=== PATIENT | female | born 1955 | race Caucasian/White ===

== ENCOUNTER 2017-05-25 08:44 | Outpatient (CLI) ==
[2014-09-21 12:29] VITALS: BMI 34.0
[2017-05-25] MEDS: SALINE FLUSH (PORT ACCESS TRAY USE ONLY) IVF ONE (10:00)
[2017-05-25 10:22] VITALS: BP 128/66; TEMP 98.1
== END 2017-05-25 10:17 | disposition home or self-care (01) ==
LOC: RAD 08:44
PROVIDERS: ATTEND Family Medicine
DX: Z12.31 Encounter for screening mammogram for malignant neoplasm of breast (principal)
CPT/HCPCS: 77067; 96523

== ENCOUNTER 2017-12-20 10:15 | Outpatient (CLI) ==
[2014-09-21 12:29] VITALS: BMI 34.0
[2017-12-20] MEDS ORDERED: HEPARIN 500 UNIT/5 ML (PORT ACCESS TRAY ONLY) IVF ONE (10:44)
[2017-12-20 10:49] VITALS: BP 118/72; TEMP 98.3
[2017-12-20] MEDS ORDERED: SALINE FLUSH (PORT ACCESS TRAY USE ONLY) IVF ONE (15:54)
== END 2017-12-20 11:03 | disposition home or self-care (01) ==
LOC: OPMED 10:15
PROVIDERS: ATTEND Family Medicine
DX: Z45.2 Encounter for adjustment and management of vascular access device (principal)
CPT/HCPCS: 96523

== ENCOUNTER 2018-01-10 08:00 | Day surgery (SDC) ==
[2014-09-21 12:29] VITALS: BMI 34.0
[2018-01-10] MEDS ORDERED: NEO-SYNEPHRINE OT PRN (08:25)
[2018-01-10] MEDS ORDERED: CORTISPORIN OTIC SUSP OT PRN (08:25)
[2018-01-10] MEDS ORDERED: ANECTINE ONE (08:55)
[2018-01-10] MEDS ORDERED: SUBLIMAZE ONE (08:55)
[2018-01-10] MEDS ORDERED: VERSED ONE (08:55)
[2018-01-10] MEDS ORDERED: DIPRIVAN 20 ML VIAL IVP ONE (08:55)
--- NOTE | 2018-01-10 11:16 | OP ---
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 5 mm endotracheal tube was inserted and then a larygyscope was inserted down to the level of the vocal cords and secured with a Lewy pathak. 400 mm lens and Zeiss microscope and then the vocal cords were inspected. There was rather marked inflammation and edema of the left true vocal cord as well as false cord area. Biopsies were taken in both of these areas. Bleeding was minimal and the patient was then extubated and returned to the recovery room in satisfactory condition. Direct laryngoscopy revealed no evidence of carcinoma in the larynx. CC: DR. LILI WALTON
[2018-01-10 15:11] VITALS: BP 112/66
== END 2018-01-10 10:30 | disposition home or self-care (01) ==
LOC: SURG 08:00
PROVIDERS: ATTEND Otolaryngology
DX: D14.1 Benign neoplasm of larynx (principal); J38.3 Other diseases of vocal cords; F17.210 Nicotine dependence, cigarettes, uncomplicated; Z85.21 Personal history of malignant neoplasm of larynx
CPT/HCPCS: 31536

== ENCOUNTER 2018-02-23 09:08 | Outpatient (CLI) ==
[2014-09-21 12:29] VITALS: BMI 34.0
--- NOTE | 2018-02-23 11:40 | MRI ---
EXAM: MRI right shoulder without contrast. HISTORY: Right shoulder pain. Right arm pain. No known injury. No right shoulder surgery reported . Laryngeal carcinoma.. TECHNIQUE: Using a local coil on a high field strength magnet multiplanar multisequence MRI was perf ormed of the right shoulder without intravenous or intra-articular gadolinium contrast.. FINDINGS: I do not have prior radiographs of the right shoulder available for comparison. A Type I acromion. Coracoacromial ligament/arch intact with some thickening. Minimal right acromioc lavicular joint arthrosis with some capsular/ligamentous hypertrophy. Fatty infiltration deltoid mus kezia. Small amount of free fluid subacromial/subdeltoid bursa. Muscle bulk of the rotator cuff shows fatty infiltration with some generalized atrophy. Diffuse supr aspinatus tendinosis. Approximate 8 mm partial thickness more intrasubstance tear over the critical zone of the supraspinatus involving approximate 50% thickness.. No full-thickness rotator cuff tear identified. Posterior infraspinatus tendinosis. Posterior inferior intact teres minor tendon fibers . Anterior intact subscapularis tendon fibers. The long head of the biceps tendon shows intact fibe rs located in expected position within the bicipital groove . Question intra-articular tendinosis an d split. The right humeral head is of normal morphology and seated. No right glenohumeral joint centered subc hondral bone marrow edema or bone erosions. Trace right glenohumeral joint effusion. Right glenoid labrum grossly intact on this non-arthrographic examination.. IMPRESSION: Minimal right acromioclavicular joint arthrosis. Rotator cuff muscle bulk fatty infiltration with some generalized atrophy. Diffuse supraspinatus ten dinosis with 8 mm partial thickness intrasubstance tear over the critical zone involving approximate 50% thickness. No full-thickness rotator cuff tear identified. Small amount free fluid subacromial/s ubdeltoid bursa may reflect an overlying degree bursitis and/or be sequelae of prior shoulder injecti on. Correlate clinically. Posterior infraspinatus tendinosis. Proximal long head biceps intra-articular tendinosis and split. Trace right glenohumeral joint effusion. Recommendation is obtainment and correlation with plain film radiographs of the right shoulder as non e are available for comparison at the time of this dictation.
== END 2018-02-23 09:09 | disposition home or self-care (01) ==
LOC: RAD 09:08
PROVIDERS: ATTEND Family Medicine
DX: M25.511 Pain in right shoulder (principal)

== ENCOUNTER 2018-03-19 12:30 | Outpatient (CLI) ==
[2014-09-21 12:29] VITALS: BMI 34.0
[2018-03-19 12:50] VITALS: BP 136/56; TEMP 98.2
[2018-03-19] MEDS: HEPARIN 500 UNIT/5 ML (PORT ACCESS TRAY ONLY) IVF ONE (15:33)
[2018-03-19] MEDS: SALINE FLUSH (PORT ACCESS TRAY USE ONLY) IVF ONE (15:33)
== END 2018-03-19 12:31 | disposition home or self-care (01) ==
LOC: CAR 12:30 → OUTPT 12:31
PROVIDERS: ATTEND Family Medicine
DX: J43.9 Emphysema, unspecified (principal); Z45.2 Encounter for adjustment and management of vascular access device
CPT/HCPCS: 94761; 96523

== ENCOUNTER 2018-05-15 09:57 | Outpatient (CLI) ==
[2014-09-21 12:29] VITALS: BMI 34.0
== END 2018-05-15 09:58 | disposition home or self-care (01) ==
LOC: RHC-LAB 09:57
PROVIDERS: ATTEND Nurse Practitioner Family
DX: R73.9 Hyperglycemia, unspecified (principal); Z78.0 Asymptomatic menopausal state; Z76.89 Persons encountering health services in other specified circumstances
CPT/HCPCS: 36415; 80053; 80061; 82306; 83036; 84443; 85025

== ENCOUNTER 2018-06-05 10:30 | Inpatient (IN) ==
[2014-09-21 12:29] VITALS: BMI 34.0
[2018-06-05] MEDS ORDERED: TYLENOL PO PRN (11:12)
[2018-06-05] MEDS ORDERED: SODIUM CHLORIDE 1,000 ML IV SCH (11:30)
[2018-06-05] MEDS: DUONEB NEB SCH ×3 (11:33→23:09)
[2018-06-05] MEDS: SOLU-MEDROL 125 MG IVP SCH ×3 (11:48→20:38)
[2018-06-05] MEDS: SYMBICORT 160-4.5 MCG INHALER IH SCH (12:32)
[2018-06-05] MEDS: SPIRIVA IH SCH (12:34)
[2018-06-05] MEDS: SYNTHROID PO SCH ×2 (12:36→12:37)
[2018-06-05] MEDS: DALIRESP PO SCH (12:36)
[2018-06-05] MEDS: SINGULAIR PO SCH (12:36)
[2018-06-05] MEDS: LOVENOX SUBCUT SCH (12:37)
--- NOTE | 2018-06-05 13:53 | CT ---
EXAM: Noncontrast CT of the chest HISTORY: Shortness of breath COMPARISON: 04/17/2017 TECHNIQUE: Axial noncontrast CT of the chest with sagittal and coronal reformats FINDINGS: There is a stable appearing probable perifissural lymph node adjacent to the right minor fissure. Johan cified granulomas are re-identified. There are scattered areas of minimal peripheral atelectasis. No focal consolidation, pleural effusion or pneumothorax is identified. There is a stable 3 mm left lo wer lobe pulmonary nodule. Heart size is normal. Calcified mediastinal and bilateral hilar lymph nodes are identified. No media stinal lymphadenopathy is seen. Atherosclerotic calcifications are present including coronary arterie s. There is a left subclavian Port-A-Cath with tip near the SVC/RA junction. A right renal superior pole 1.0 cm probable cyst is seen. There is remote compression deformity of a mid thoracic vertebral body. IMPRESSION: No acute cardiopulmonary findings. Evidence of prior granulomatous infection. Stable 3 mm left lower lobe pulmonary nodule.
[2018-06-05] MEDS ORDERED: MELOXICAM 7.5 MG PO SCH (17:30)
[2018-06-05] MEDS ORDERED: ROCEPHIN ONE (17:36)
[2018-06-05] MEDS: ROCEPHIN 1 GM in SODIUM CHLORIDE 50 ML IV SCH (18:08)
[2018-06-05] MEDS: ZANTAC PO SCH (18:08)
[2018-06-05] MEDS: MOBIC PO SCH (18:08)
[2018-06-05] MEDS: MUCINEX PO SCH (20:38)
[2018-06-06] MEDS: DUONEB NEB SCH ×4 (04:48→23:25)
[2018-06-06] MEDS: ZANTAC PO SCH ×2 (05:49→17:44)
[2018-06-06] MEDS: SOLU-MEDROL 125 MG IVP SCH ×3 (05:51→21:27)
[2018-06-06] MEDS: SYNTHROID PO SCH ×2 (05:54→05:55)
[2018-06-06] MEDS ORDERED: LASIX IVP STA (07:50)
[2018-06-06] MEDS: MOBIC PO SCH ×2 (08:11→17:43)
[2018-06-06] MEDS: DALIRESP PO SCH (08:11)
[2018-06-06] MEDS: SYMBICORT 160-4.5 MCG INHALER IH SCH (08:12)
[2018-06-06] MEDS: LOVENOX SUBCUT SCH (08:12)
[2018-06-06] MEDS: SPIRIVA IH SCH (08:12)
[2018-06-06] MEDS: MUCINEX PO SCH ×2 (08:12→21:29)
[2018-06-06] MEDS: SINGULAIR PO SCH (08:12)
[2018-06-06] MEDS: ROCEPHIN 1 GM in SODIUM CHLORIDE 50 ML IV SCH (09:10)
[2018-06-06] MEDS: HUMULIN R SUBCUT PRN ×3 (11:32→21:28)
[2018-06-07] MEDS: DUONEB NEB SCH ×4 (05:20→22:55)
[2018-06-07] MEDS: SYNTHROID PO SCH ×2 (05:48→05:49)
[2018-06-07] MEDS: SOLU-MEDROL 125 MG IVP SCH ×3 (05:49→20:43)
[2018-06-07] MEDS: ZANTAC PO SCH ×2 (05:49→17:03)
[2018-06-07] MEDS: HUMULIN R SUBCUT PRN ×4 (06:00→20:44)
--- NOTE | 2018-06-07 08:40 | PN ---
DATE OF SERVICE: 06/06/18 SUBJECTIVE: The patient was admitted from the office for the hypoxemic respiratory failure and COPD exacerbation and bronchitis. D-Dimer is 334, pro BNP is 319. The patient given a dose of Lasix, breathing better but still coughing and congested. REVIEW OF SYSTEMS: CONSTITUTIONAL: No fever, no chills. HEENT: Normal. ENDOCRINE: No weight gain, no weight loss. CVS: No angina symptoms. No CHF symptoms. No palpitations. No atypical chest pain for CAD. No shortness of breath. No PND, no orthopnea. RESPIRATORY:Cough, no hemoptysis. GI: No nausea, no vomiting. No abdominal pain. : No hematuria. No polyuria. MUSCULOSKELETAL: No joint swelling. PSYCHIATRIC: Not anxious. No depression. No suicidal thoughts. No homicidal thoughts. SKIN: Intact. No rash. PHYSICAL EXAMINATION: V/S: Blood pressure 127/70, respiratory rate 20, heart rate 104, temperature 98.9 with saturation 91% with 4 liters. HEENT: Normocephalic, atraumatic. Mucosa dry. Pallor positive. No icterus. NECK: Supple. No JVD, no carotid bruit. No lymphadenopathy. LUNGS: Decreased and basilar crackles with mild expiratory wheeze. No rales or rhonchi. HEART: S1, S2 normal. No S3. No murmur, gallop or regurgitation. ABDOMEN: Soft, nontender. Bowel sounds active. No rigidity. No rebound or guarding. No CVA tenderness. EXTREMITIES: No cyanosis, clubbing or pedal edema. MUSCULOSKELETAL: No joint swelling. NEUROLOGIC: Awake, alert. No focal deficit. LYMPHATIC: No lymph nodes palpable. SKIN: Intact. LABS: Sodium 142, potassium 3.9, chloride 101, bicarb 36, BUN 10, creatinine 0.48, glucose 290, A1c 6.70, WBC 10.76, hgb 12.8, hct 40.7, plt count 253. ASSESSMENT: 1. COPD exacerbation secondary to the bronchitis 2. Hypoxemia secondary to the COPD exacerbation 3. Diabetes 4. Hypertension 5. Dyslipidemia 6. Sleep apnea on CPAP 7. History of throat cancer, chemo and radiation, 39 treatments 8. Obesity 9. Nicotine use 10.Hypothyroidism PLAN: 1. Rocephin 2. Lovenox 3. Lasix IV push 4. DUO NEBS 5. Solu-Medrol 80 Q 8 hours 6. Daily I&O's TIME SPENT: More than 35 minutes MTDD
[2018-06-07] MEDS: ROCEPHIN 1 GM in SODIUM CHLORIDE 50 ML IV SCH (08:54)
[2018-06-07] MEDS: SINGULAIR PO SCH (08:54)
[2018-06-07] MEDS: SPIRIVA IH SCH (08:54)
[2018-06-07] MEDS: GLUCOPHAGE PO SCH (08:54)
[2018-06-07] MEDS: MUCINEX PO SCH ×2 (08:54→20:43)
[2018-06-07] MEDS: DALIRESP PO SCH (08:54)
[2018-06-07] MEDS: SYMBICORT 160-4.5 MCG INHALER IH SCH (08:54)
[2018-06-07] MEDS: LOVENOX SUBCUT SCH (08:55)
[2018-06-07] MEDS: MOBIC PO SCH ×2 (08:56→17:03)
[2018-06-07] MEDS ORDERED: NON-FORMULARY MEDICATION (Levothyroxine Sodium [Synthroid] 125 MCG) PO SCH (09:00)
[2018-06-07] MEDS ORDERED: LEVOTHYROXINE SODIUM 150 MCG PO SCH (09:00)
[2018-06-07] MEDS ORDERED: CARAFATE PO SCH (11:00)
[2018-06-07] MEDS ORDERED: LIPITOR PO SCH (21:00)
[2018-06-08] MEDS: DUONEB NEB SCH ×2 (05:09→11:03)
[2018-06-08] MEDS: ZANTAC PO SCH (05:54)
[2018-06-08] MEDS: SYNTHROID PO SCH ×2 (05:54→05:56)
[2018-06-08] MEDS: SOLU-MEDROL 125 MG IVP SCH (05:57)
[2018-06-08] MEDS: HUMULIN R SUBCUT PRN (05:58)
[2018-06-08] MEDS: MOBIC PO SCH (09:26)
[2018-06-08] MEDS: ROCEPHIN 1 GM in SODIUM CHLORIDE 50 ML IV SCH (09:26)
[2018-06-08] MEDS: SINGULAIR PO SCH (09:26)
[2018-06-08] MEDS: LOVENOX SUBCUT SCH (09:27)
[2018-06-08] MEDS: MUCINEX PO SCH (09:27)
[2018-06-08] MEDS: GLUCOPHAGE PO SCH (09:27)
[2018-06-08] MEDS: SYMBICORT 160-4.5 MCG INHALER IH SCH (09:27)
[2018-06-08] MEDS: DALIRESP PO SCH (09:27)
[2018-06-08] MEDS: SPIRIVA IH SCH (09:27)
[2018-06-08 10:00] VITALS: BP 125/50; TEMP 98.1
--- NOTE | 2018-06-08 10:26 | ECHO2D ---
Date of Exam: 06/07/18 Ordering Physician: DR. ERICK WINTER Room #: [id number] Reason for Echo: ELEVATED BNP, SOB M-Mode Normal Adult Results LV Dimensions Normal Adult Results AoV Opening excursions >1.6 >1.6 LVEDD-base- 3.5-5.8 4.6 Ao root dimensions 2.0-3.7 2.9 LVESD-base- 3.1-4.6 L. Atrium dimensions 1.9-3.8 3.8 Post. Wall thickness 0.8-1.1 1.0 IV septum (thickness) 0.7-1.2 1.0 Post. Wall excursion 0.72-1.3 NORMAL Septal motion NORMAL Systolic motion R. Ventricular cavity 1.5-2.0 NORMAL LVEF 60% 53% Paradoxical septal wall motion NORMAL 2-D : 2-D M Mode Echocardiogram was performed using apical four chamber and left parasternal long and short axis views. Mitral, tricuspid and aortic valves appear to be normal. Contractility of the left ventricle seems to be normal, so is the cavity size. Left atrial cavity size and aortic root appear to be normal. There is no pericardial effusion. There is no thrombus noted in the left ventricular or left aortic cavity. No mitral valve prolapse noted. M-MODE: MV: NORMAL AV: NORMAL TV: NORMAL PV: CHAMBER SIZE: NORMAL WALL MOTION: NORMAL PERICARDIUM: NORMAL INTERPRETATION: 1. NORMAL 2 "D" "M" MODE ECHO MTDD
--- NOTE | 2018-06-08 10:28 | PN ---
DATE OF SERVICE: 06/07/18 SUBJECTIVE: The patient was admitted with hypoxemic respiratory failure. CT chest negative for the pneumonia. The patient still coughing, congested and getting yellow/ green phlegm. REVIEW OF SYSTEMS: CONSTITUTIONAL: No fever, no chills. HEENT: Normal. ENDOCRINE: No weight gain, no weight loss. CVS: No angina symptoms. No CHF symptoms. No palpitations. No atypical chest pain for CAD. No shortness of breath. No PND, no orthopnea. RESPIRATORY: Cough, no hemoptysis. Pulmonary nodule last seen on the CT chest. GI: No nausea, no vomiting. No abdominal pain. : No hematuria. No polyuria. MUSCULOSKELETAL: No joint swelling. PSYCHIATRIC: Not anxious. No depression. No suicidal thoughts. No homicidal thoughts. SKIN: Intact. No rash. PHYSICAL EXAMINATION: V/S: Blood pressure 126/60, respiratory rate 20, heart rate 117, temperature 98.5 with saturation 96% on 4 liters. HEENT: Normocephalic, atraumatic. Mucosa dry. Pallor positive. No icterus. NECK: Supple. No JVD, no carotid bruit. No lymphadenopathy. LUNGS: Decreased and basilar crackles. Clear to auscultation. No rales or rhonchi. HEART: S1, S2 normal. No S3. No murmur, gallop or regurgitation. ABDOMEN: Soft, nontender. Bowel sounds active. No rigidity. No rebound or guarding. No CVA tenderness. EXTREMITIES: No cyanosis, clubbing or pedal edema. MUSCULOSKELETAL: No joint swelling. NEUROLOGIC: Awake, alert. No focal deficit. LYMPHATIC: No lymph nodes palpable. SKIN: Intact. LABS: WBC 21.16, hgb 12.3, hct 37.9, plt count 265, D-Dimer 334, sodium 139, potassium 4.1, chloride 99, bicarb 39, BUN 23, creatinine 0.59 and glucose 248. ASSESSMENT: 1. COPD exacerbation secondary to the bronchitis 2. Acute on chronic heart failure 3. Dyslipidemia 4. COPD 5. Sleep apnea on CPAP 6. GERD 7. Hypothyroidism 8. Hysterectomy 9. Cholecystectomy 10.Throat cancer, status post chemo and radiation 11. New onset diabetes. PLAN: 1. Will get echocardiogram in the morning 2. Continue Lovenox and Rocephin 3. Heparin Flush 4. Accu-checks with coverage 5. The patient was taking the medications in the past but was stopped. 6. Diabetic education been offered to the patient. TIME SPENT: More than 35 minutes MTDD
--- NOTE | 2018-07-03 09:23 | DS ---
DATE OF SERVICE: 06/08/18 FINAL DIAGNOSIS: 1. HYPOXEMIA 2. RESPIRATORY FAILURE 3. COPD, MODERATE RESTRICTIVE LUNG DISEASE PER PFT 4. CANCER LARYNX, 2010 5. GERD 6. SLEEP APNEA 7. ARTHRITIS 8. SMOKER 9. CHOLECYSTECTOMY 10. HYSTERECTOMY 11. LARYNGOSCOPY, BIOPSY DONE 12. LEFT SUBCLAVIAN PORT DISCHARGE INSTRUCTIONS: 1. Discharge the patient home. 2. Followup appointment in [facility] within 5 to 7 days. 3. Diet consistent with carbohydrate diet. 4. Activity - resume as tolerated. 5. Oxygen at 4L, CPAP at night. MEDICATIONS AT DISCHARGE: 1. Meloxicam nebulizer 2. Mucinex 3. Symbicort 4. Synthroid 5. Singulair 6. Zantac 7. Daliresp 8. Spiriva 9. Albuterol nebulizer p.r.n. NEW PRESCRIPTIONS: 1. Keflex 500 mg twice a day for 5 days. 2. Prednisone 10 mg twice a day for 5 days. 3. Metformin once daily DIET INSTRUCTIONS: Cardiac and Healthy ACTIVITY: As much as tolerated. DISEASE SPECIFIC EDUCATION: COPD, PNEUMONIA NEEDING PNEUMONIA VACCINATION, DISCUSSED. ANTIBIOTIC USE AND DIET DISCUSSED, VERBALIZED UNDERSTANDING. HOSPITAL COURSE: Tanna Olivares came to the office and was seen by Bela Koroma for shortness of breath, cough, congestion, hypoxemia seen on room saturation 82% on 4L admitted to the hospital with wheezing, coughing and bronchitis symptoms. D. Dimer negative 334. ABGs showed pH 7.363, pc02 64.8, p02 84 on 4L. White count normal. Chemistry normal. Sugars were high. A1C 6.70. Metformin is started. Echocardiogram done. Ejection fraction 53, normal left ventricle. CT chest no acute cardiovascular disease. Evidence of prior granulomatous infection. Stable 3 mm left lower lobe pulmonary nodule discussed with the patient and further need of evaluation as outpatient. Gradually the patient's cough and congestion was getting better. She is up and about and able to walk without any problems. At that time, the patient was discharged home. TIME SPENT: MORE THAN 65 MINUTES MTDD
== END 2018-06-08 11:45 | disposition home or self-care (01) | DRG 189 ==
LOC: MEDSURG A 10:30
PROVIDERS: ADMIT Emergency Medicine; ATTEND Emergency Medicine
DX: J96.90 Respiratory failure, unspecified, unspecified whether with hypoxia or hypercapnia (principal); J44.9 Chronic obstructive pulmonary disease, unspecified; J40 Bronchitis, not specified as acute or chronic; E78.5 Hyperlipidemia, unspecified; E66.9 Obesity, unspecified; E03.9 Hypothyroidism, unspecified; K21.9 Gastro-esophageal reflux disease without esophagitis; G47.30 Sleep apnea, unspecified; M19.90 Unspecified osteoarthritis, unspecified site; R06.02 Shortness of breath; R73.9 Hyperglycemia, unspecified; I50.9 Heart failure, unspecified; F17.210 Nicotine dependence, cigarettes, uncomplicated; Z72.0 Tobacco use
CPT/HCPCS: 36415; 80053; 82550; 82803; 82962; 83036; 84484; 85025; 85379; 87070; 93005; 93010; 94640; 97802; 97803

== ENCOUNTER 2018-06-21 09:57 | Outpatient (CLI) ==
[2014-09-21 12:29] VITALS: BMI 34.0
== END 2018-06-21 09:58 | disposition home or self-care (01) ==
LOC: RHC-LAB 09:57
PROVIDERS: ATTEND Nurse Practitioner Family
DX: R79.89 Other specified abnormal findings of blood chemistry (principal); E78.5 Hyperlipidemia, unspecified
CPT/HCPCS: 36415; 80061; 84443

== ENCOUNTER 2018-07-04 08:34 | Outpatient (CLI) ==
[2014-09-21 12:29] VITALS: BMI 34.0
--- NOTE | 2018-07-04 10:56 | CT ---
Exam: CT abdomen pelvis without intravenous contrast followed by CT abdomen pelvis with intravenous contrast. Comparison: None available. Reason for exam: Cyst on kidneys. FINDINGS: Nodular ground-glass measuring up to 6 mm as seen on axial image number 22 and atelectasis in the partially imaged lung bases. No pleural effusion. The liver, spleen, pancreas, and adrenal glands appear grossly unremarkable. The gallbladder is not seen on the exam and presumably has been removed. Cystic structure in the right lateral kidney with mild contrast enhancement. 5 mm renal cyst in the right kidney is seen on axial image number 66. Tiny fat containing periumbilical hernia. Operative changes are seen in the anterior abdominal wall. No focal small bowel dilatation or transition point. No hydronephrosis, hydroureter or nephrolithiasis in either kidney. Mild diverticular disease in the descending and rectosigmoid colon without surrounding inflammatory c hange. Contrast is seen within the urinary bladder. No acute fracture or listhesis in the lumbosacral spine. No suspicious appearing osteoblastic or ost eolytic lesion. Impression: 1. Mildly enhancing 1 cm hypodensity in the right lateral kidney. Recommend further evaluation. 2. 5 mm cyst in the right renal parenchyma. 3. Operative changes in the anterior abdominal wall/pelvis. 4. Nodular atelectasis/ground-glass measuring up to 6 mm on axial image number 22. Recommend 3-6-mon th follow-up imaging to document stability. 5. Diverticulosis without diverticulitis
== END 2018-07-04 08:35 | disposition home or self-care (01) ==
LOC: RAD 08:34
PROVIDERS: ATTEND Nurse Practitioner Family
DX: N28.1 Cyst of kidney, acquired (principal)

== ENCOUNTER 2018-10-08 08:49 | Outpatient (CLI) ==
[2014-09-21 12:29] VITALS: BMI 34.0
== END 2018-10-08 08:50 | disposition home or self-care (01) ==
LOC: LAB 08:49
PROVIDERS: ATTEND Nurse Practitioner Family
DX: E11.9 Type 2 diabetes mellitus without complications (principal); E78.5 Hyperlipidemia, unspecified; E03.9 Hypothyroidism, unspecified; J44.9 Chronic obstructive pulmonary disease, unspecified
CPT/HCPCS: 36415; 80053; 83036; 84443; 85025

== ENCOUNTER 2018-10-19 08:12 | Outpatient (CLI) ==
[2014-09-21 12:29] VITALS: BMI 34.0
[2018-10-19 08:35] VITALS: BP 123/73; TEMP 98.2
[2018-10-19] MEDS: HEPARIN 500 UNIT/5 ML (PORT ACCESS TRAY ONLY) IVF PRN ×2 (08:38→08:40)
== END 2018-10-19 08:13 | disposition home or self-care (01) ==
LOC: OPMED 08:12
PROVIDERS: ATTEND Nurse Practitioner Family
DX: Z45.2 Encounter for adjustment and management of vascular access device (principal)
CPT/HCPCS: 96523

== ENCOUNTER 2019-05-10 09:19 | Outpatient (CLI) ==
[2014-09-21 12:29] VITALS: BMI 34.0
[2019-05-10 09:50] VITALS: BP 147/70; TEMP 98.4
[2019-05-10] MEDS ORDERED: SALINE FLUSH (PORT ACCESS TRAY USE ONLY) IVF ONE (10:24)
== END 2019-05-10 09:20 | disposition home or self-care (01) ==
LOC: OPMED 09:19
PROVIDERS: ATTEND Nurse Practitioner Family
DX: E78.5 Hyperlipidemia, unspecified (principal); E11.9 Type 2 diabetes mellitus without complications; E03.9 Hypothyroidism, unspecified; I50.9 Heart failure, unspecified; J44.9 Chronic obstructive pulmonary disease, unspecified; Z45.2 Encounter for adjustment and management of vascular access device
CPT/HCPCS: 36415; 80053; 80061; 83036; 83880; 84443; 85025; 96523